=== PATIENT | male | born 1960 | race Caucasian/White ===

== ENCOUNTER 2016-08-21 18:21 | Emergency (ER) | payer BC ==
[2016-08-21 18:33] VITALS: BP 125/65; PULSE 85; TEMP 98.4; BMI 21.7
[2016-08-21] MEDS ORDERED: DEXAMETHASONE SOD PHOSPHATE 10 MG/1 ML VIAL IM ONE (19:20)
--- NOTE | 2016-08-21 19:27 | PDOC ---
History of Present Illness - General Chief Complaint: Sore Throat Stated Complaint: SORE THROAT Time Seen by Provider: 08/21/16 18:59 History Source: Patient Exam Limitations: No Limitations - History of Present Illness Initial Comments: 08/21/16 19:28 feeling no better post 2 days of amoxicilln ffor throat infection Associated Symptoms: reports: denies symptoms Past History - Past Medical History Allergies/Adverse Reactions: Allergies Allergy/AdvReac Type Severity Reaction Status Date / Time No Known Allergies Allergy Verified 08/21/16 18:33 - Psycho/Social/Smoking Cessation Hx Suicidal Ideation: No Smoking History: Never smoked Information on smoking cessation initiated: No Review of Systems - Review of Systems Constitutional: Yes: Chills, Malaise. No: Fever HEENTM: Yes: Throat Pain, Throat Swelling, Difficulty Swallowing Respiratory: No: Cough Cardiac (ROS): No: Symptoms Reported ABD/GI: Yes: Symptoms Reported *Physical Exam - Vital Signs Last Vital Signs Temp Pulse Resp BP Pulse Ox 98.4 F 85 18 125/65 100 08/21/16 18:30 08/21/16 18:30 08/21/16 18:30 08/21/16 18:30 08/21/16 18:30 - Physical Exam General Appearance: Yes: Appropriately Dressed, Apparent Distress HEENT: positive: TMs Normal, Other (left tonsil swollen, no COLOR BLENDER noted) Neck: positive: Supple, Lymphadenopathy (L). negative: Tender, Rigid Respiratory/Chest: positive: Lungs Clear. negative: Respiratory Distress, Accessory Muscle Use Cardiovascular: positive: Regular Rhythm, Regular Rate Medical Decision Making - Medical Decision Making 08/21/16 19:30 will increase [id number] x TID and have pt follow up with ENT in am *DC/Admit/Observation/Transfer Diagnosis at time of Disposition: Acute bacterial tonsillitis - Discharge Dispostion Disposition: HOME Admit: Yes - Referrals Referrals: Trip Porras MD [Staff Physician] - - Patient Instructions Additional Instructions: please see Dr Porras tomorrow or sunday; if symptoms not better; take amox 3 times daily x 10 days - Post Discharge Activity Work/School Note: Back to Work
[2016-08-21] MEDS ORDERED: DEXAMETHASONE SOD PHOSPHATE 10 MG/1 ML VIAL ONE (19:33)
== END 2016-08-21 19:45 | disposition home or self-care (01) ==
LOC: JERFT 18:21
PROC: 3E0233Z Introduction of Anti-inflammatory into Muscle, Percutaneous Approach (ICD-10-PCS; principal; 2016-08-21)
DX: J03.80 Acute tonsillitis due to other specified organisms (principal); B96.89 Other specified bacterial agents as the cause of diseases classified elsewhere
CPT/HCPCS: 99281-25

== ENCOUNTER 2016-08-23 00:34 | Emergency (ER) | payer BC ==
[2016-08-23 00:59] VITALS: BP 139/71; PULSE 105; TEMP 99.7; BMI 21.7
[2016-08-23] MEDS ORDERED: DEXAMETHASONE SOD PHOSPHATE 10 MG/1 ML VIAL IVPUSH ONE (01:09)
--- NOTE | 2016-08-23 01:09 | PDOC ---
History of Present Illness - History of Present Illness Initial Comments: 08/23/16 01:27 Patient is a 56 year old male with no significant medical hx who is presenting to the ED for worsening throat infection after four days of antibiotics. Patient came to the ED on 08/916 for worsening throat infection after being on antibiotics for two days. He was sent home with increased amoxicillin 500mg x TID and advised to follow-up with ENT. The patient has a follow up appointment with ENT coming up at 11:00 am today. The patient came to the ED tonight because his symptoms are not getting better and he is unable to tolerate swallowing food. He is able to tolerate small sips of liquids. The patient is also complaining of low grade fever with chills. <Gabbi Sheridan - Last Filed: 08/23/16 01:27> <Monik Chatterjee - Last Filed: 08/27/16 16:44> - General Chief Complaint: Edema Stated Complaint: SORE THROAT, DIFFICULTY BREATHING Time Seen by Provider: 08/23/16 00:52 Past History <Gabbi Sheridan - Last Filed: 08/23/16 01:27> - Psycho/Social/Smoking Cessation Hx Suicidal Ideation: No Smoking History: Never smoked <Monik Chatterjee - Last Filed: 08/27/16 16:44> - Past Medical History Allergies/Adverse Reactions: Allergies Allergy/AdvReac Type Severity Reaction Status Date / Time No Known Allergies Allergy Verified 08/21/16 18:33 Home Medications: Ambulatory Orders Amoxicillin - [Amoxicillin 500mg Capsule -] 500 mg PO TID #21 capsule 08/21/16 Review of Systems - Review of Systems Comments:: 08/23/16 01:28 CONSTITUTIONAL: Present: low grade fever, chills Absent: diaphoresis, generalized weakness, malaise, loss of appetite HEENT: Present: throat pain, throat swelling, difficulty swallowing Absent: rhinorrhea, nasal congestion, mouth swelling, ear pain, eye pain, visual changes CARDIOVASCULAR: Absent: chest pain, syncope, palpitations, irregular heart rate, lightheadedness , peripheral edema RESPIRATORY: Absent: cough, shortness of breath, dyspnea with exertion, orthopnea, wheezing, stridor, hemoptysis GASTROINTESTINAL: Absent: abdominal pain, abdominal distension, nausea, vomiting, diarrhea, constipation, melena, hematochezia GENITOURINARY: Absent: dysuria, frequency, urgency, hesitancy, hematuria, flank pain, genital pain MUSCULOSKELETAL: Absent: myalgia, arthralgia, joint swelling SKIN: Absent: rash, itching, pallor HEMATOLOGIC/IMMUNOLOGIC: Absent: easy bleeding, easy bruising, lymphadenopathy, frequent infections ENDOCRINE: Absent: unexplained weight gain, unexplained weight loss, heat intolerance, cold intolerance NEUROLOGIC: Absent: headache, focal weakness or paresthesia, dizziness, unsteady gait, seizure, mental status changes, bladder or bowel incontinence. PSYCHIATRIC: Absent: anxiety, depression, suicidal or homicidal ideation, hallucinations <Gabbi Sheridan - Last Filed: 08/23/16 01:27> *Physical Exam - Vital Signs Last Vital Signs Temp Pulse Resp BP Pulse Ox 99.7 F H 105 H 18 139/71 97 08/23/16 00:44 08/23/16 00:44 08/23/16 00:44 08/23/16 00:44 08/23/16 00:44 - Physical Exam Comments: 08/23/16 01:29 GENERAL: Well developed, well nourished. Awake and alert. No acute distress. HEENT: Normocephalic, atraumatic. PERRLA, EOMI. No conjunctival pallor. Sclera are non- icteric. Dry mucous membranes. Hot potato voice, throat swelling, left tonsillar pillar swelling and entire palette swelling. Deviation of uvula. NECK: Supple. Full ROM. No JVD. Carotid pulses 2+ and symmetric, without bruits. No thyromegaly. No lymphadenopathy. CARDIOVASCULAR: Regular rate and rhythm. No murmurs, rubs, or gallops. Distal pulses are 2+ and symmetric. PULMONARY: No evidence of respiratory distress. Lungs clear to auscultation bilaterally. No wheezing, rales or rhonchi. ABDOMINAL: Soft. Non-tender. Non-distended. No rebound or guarding. No organomegaly. Normoactive bowel sounds. MUSCULOSKELETAL: Normal range of motion at all joints. No bony deformities or tenderness. No CVA tenderness. EXTREMITIES: No cyanosis. No clubbing. No edema. No calf tenderness. SKIN: Warm and dry. Normal capillary refill. No rashes. No jaundice. NEUROLOGICAL: Alert, awake, appropriate. Cranial nerves 2-12 intact. Normal speech. Gait is normal without ataxia. PSYCHIATRIC: Cooperative. Good eye contact. Appropriate mood and affect. <Gabbi Sheridan - Last Filed: 08/23/16 01:27> - Vital Signs Last Vital Signs Temp Pulse Resp BP Pulse Ox 99.7 F H 105 H 18 139/71 97 08/23/16 00:44 08/23/16 00:44 08/23/16 00:44 08/23/16 00:44 08/23/16 00:44 <Monik Chatterjee - Last Filed: 08/27/16 16:44> ED Treatment Course - Medications Given in the ED: ED Medications Discontinued Medications Generic Name Dose Route Start Last Admin Trade Name Freq PRN Reason Stop Dose Admin Dexamethasone Sodium Phosphate 20 mg 08/23/16 01:09 08/23/16 01:11 Decadron Injection - IVPUSH 08/23/16 01:10 20 mg ONCE ONE Administration <Gabbi Sheridan - Last Filed: 08/23/16 01:27> - LABORATORY CBC & Chemistry Diagram: 08/23/16 01:25 08/23/16 01:25 <Monik Chatterjee - Last Filed: 08/27/16 16:44> *DC/Admit/Observation/Transfer - Attestations Scribe Attestion: 08/23/16 01:31 Documentation prepared by Gabbi Sheridan, acting as medical practice manager for Monik Chatterjee MD. <Gabbi Sheridan - Last Filed: 08/23/16 01:27> <Monik Chatterjee - Last Filed: 08/27/16 16:44> Diagnosis at time of Disposition: Acute bacterial tonsillitis - Discharge Dispostion Disposition: HOME Condition at time of disposition: Good - Referrals Referrals: Mariano Wilks MD [Primary Care Provider] - Trip Porras MD [Staff Physician] - - Patient Instructions Printed Discharge Instructions: DI for Pharyngitis/Tonsillopharyngitis -- Adult Print Language: [place] ISLAND[place]
[2016-08-23] MEDS ORDERED: SODIUM CHLORIDE 1,000 ML IV STA (01:10)
[2016-08-23] MEDS ORDERED: DEXAMETHASONE SOD PHOSPHATE 10 MG/1 ML VIAL ONE (01:14)
[2016-08-23] MEDS: ACETAMINOPHEN 1000 MG/100 ML VIAL (NON FORMULARY) IVPB ONE ×2 (01:27→01:33)
[2016-08-23] MEDS ORDERED: KETOROLAC TROMETHAMINE 30 MG/1 ML VIAL ONE (01:29)
[2016-08-23] MEDS ORDERED: KETOROLAC TROMETHAMINE 30 MG/1 ML VIAL IVPUSH ONE (01:34)
[2016-08-23 01:37] LABS: BASOPHIL 0.3 % (0-2.0); EOSINOPHIL 0.1 % (0-4.5); MCH 29.9 pg (25.7-33.7); MCHC 32.7 g/dl (32.0-35.9); MEAN CELL VOLUME 91.7 fl (80-96); MEAN PLT VOLUME 7.6 fl (7.5-11.1); NEUTROPHILS 75.2 % (42.8-82.8); PLATELET COUNT 363 K/MM3 (134-434); RDW 13.1 % (11.9-15.9); WHITE BLOOD COUNT 15.8 K/mm3 (4.0-10.0)
[2016-08-23 02:04] LABS: ALBUMIN 3.9 g/dl (3.4-5.0); ALK PHOS 82 U/L (45-117); ANION GAP 10 (8-16); BILIRUBIN,TOTAL 0.9 mg/dL (0.2-1.0); CALCIUM 8.9 mg/dL (8.5-10.1); CO2 30 mmol/L (21-32); GLUCOSE,RANDOM 111 mg/dL (74-106); SGOT/AST 29 U/L (15-37); SGPT/ALT 62 U/L (12-78); TOT PROT 7.6 g/dl (6.4-8.2)
--- NOTE | 2016-08-23 03:42 | PDOC ---
*Physical Exam - Vital Signs Last Vital Signs Temp Pulse Resp BP Pulse Ox 99.7 F H 105 H 18 139/71 97 08/23/16 00:44 08/23/16 00:44 08/23/16 00:44 08/23/16 00:44 08/23/16 00:44 ED Treatment Course - LABORATORY CBC & Chemistry Diagram: 08/23/16 01:25 08/23/16 01:25 - ADDITIONAL ORDERS Additional order review: Laboratory Results 08/23/16 01:25 Sodium 142 Potassium 3.9 Chloride 102 Carbon Dioxide 30 Anion Gap 10 BUN 11 Creatinine 1.0 Creat Clearance w eGFR > 60 Random Glucose 111 H Calcium 8.9 Total Bilirubin 0.9 AST 29 ALT 62 Alkaline Phosphatase 82 Total Protein 7.6 Albumin 3.9 08/23/16 01:25 RBC 5.16 MCV 91.7 MCHC 32.7 RDW 13.1 MPV 7.6 Neutrophils % 75.2 Lymphocytes % 13.7 Monocytes % 10.7 H Eosinophils % 0.1 Basophils % 0.3 - Medications Given in the ED: ED Medications Discontinued Medications Generic Name Dose Route Start Last Admin Trade Name Jayme PRN Reason Stop Dose Admin Acetaminophen 1,000 mg 08/23/16 01:23 08/23/16 01:33 Ofirmev Injection - IVPB 08/23/16 01:24 Not Given ONCE ONE Dexamethasone Sodium Phosphate 20 mg 08/23/16 01:09 08/23/16 01:11 Decadron Injection - IVPUSH 08/23/16 01:10 20 mg ONCE ONE Administration Sodium Chloride 1,000 mls @ 1,000 mls/hr 08/23/16 01:10 08/23/16 01:11 Normal Saline - IV 08/23/16 02:09 1,000 mls/hr ASDIR STA Administration Ketorolac Tromethamine 30 mg 08/23/16 01:34 08/23/16 01:35 Toradol Injection - IVPUSH 08/23/16 01:35 30 mg NOW ONE Administration *DC/Admit/Observation/Transfer Diagnosis at time of Disposition: Acute bacterial tonsillitis - Discharge Dispostion Disposition: HOME Condition at time of disposition: Stable Admit: No - Referrals Referrals: Mariano Wilks MD [Primary Care Provider] - Trip Porras MD [Staff Physician] - - Patient Instructions Printed Discharge Instructions: DI for Pharyngitis/Tonsillopharyngitis -- Adult Print Language: MAORI - Post Discharge Activity
== END 2016-08-23 03:44 | disposition home or self-care (01) ==
LOC: JER 00:34
PROC: 3E033NZ Introduction of Analgesics, Hypnotics, Sedatives into Peripheral Vein, Percutaneous Approach (ICD-10-PCS; principal; 2016-08-23)
PROC: 3E0333Z Introduction of Anti-inflammatory into Peripheral Vein, Percutaneous Approach (ICD-10-PCS; 2016-08-23)
DX: J03.80 Acute tonsillitis due to other specified organisms (principal); B96.89 Other specified bacterial agents as the cause of diseases classified elsewhere
CPT/HCPCS: 36415; 70490-TC; 80053; 85025; 99282-25

== ENCOUNTER 2018-12-13 11:27 | Emergency (ER) | payer BC ==
[2018-12-13 11:36] VITALS: BMI 27.4
--- NOTE | 2018-12-13 12:08 | PDOC ---
History of Present Illness - General Chief Complaint: Chest Pain Stated Complaint: CHEST PAIN History Source: Patient Exam Limitations: No Limitations - History of Present Illness Initial Comments: 12/13/18 12:25 58 yo M with no past medical history presents to the emergency department with chest prickling sensation that began yesterday and worsened today. Per the patient, it abruptly onset last night while laying down. He denies it being painful but endorses it feeling like a prickling sensation lasting 15 minutes at a time without radiation. While at work lifting boxes approximating 30 lbs today at 8am, he experienced the same prickling sensation that lasted 30 minutes with a feeling of heaviness radiating to his left arm that terminated on his own. He denies the following: fever, chills, SOB, nausea, vomiting, diaphoresis, neck and back pain, and dysuria. Per the patient, he was evaluated by his oil expert 15 years ago for a murmur and his echo was normal; denies a hx of stress test. He endorses lifting heavier objects recently. Shx: None Allergies: NKDA Social: Denies tobacco, alcohol, and substance abuse. Meds: None Past History - Past Medical History Allergies/Adverse Reactions: Allergies Allergy/AdvReac Type Severity Reaction Status Date / Time No Known Allergies Allergy Verified 12/13/18 11:36 Home Medications: Ambulatory Orders NK [No Known Home Medication] 12/13/18 COPD: No Hypercholesterolemia: Yes - Suicide/Smoking/Psychosocial Hx Smoking History: Never smoked Have you smoked in the past 12 months: No Information on smoking cessation initiated: No Hx Alcohol Use: No Drug/Substance Use Hx: No Review of Systems - Review of Systems Able to Perform ROS?: Yes Is the patient limited Ivorian proficient: No Constitutional: No: Chills, Diaphoresis, Fever HEENTM: No: Blurred Vision, Recent change in vision, Ear Pain, Nose Pain, Throat Pain, Mouth Pain Respiratory: No: Cough, Shortness of Breath, Hemoptysis Cardiac (ROS): Yes: Chest Pain. No: Lightheadedness, Palpitations, Syncope, Chest Tightness ABD/GI: No: Constipated, Diarrhea, Nausea, Poor Appetite, Poor Fluid Intake, Rectal Bleeding, Vomiting, Tarry Stools : No: Burning, Dysuria, Hematuria, Incontinence Musculoskeletal: No: Back Pain, Joint Pain, Neck Pain Integumentary: No: Bruising, Erythema, Rash Neurological: No: Headache, Numbness, Tingling, Tremors, Dizziness Psychiatric: No: Change in Appetite Endocrine: No: Unexplained Weight Gain Hematologic/Lymphatic: No: Anemia *Physical Exam - Vital Signs Last Vital Signs Temp Pulse Resp BP Pulse Ox 98.0 F 84 18 134/69 100 12/13/18 11:28 12/13/18 11:28 12/13/18 11:28 12/13/18 11:12/13/18 11:28 - Physical Exam General Appearance: Yes: Nourished, Appropriately Dressed. No: Apparent Distress, Intoxicated HEENT: positive: EOMI, POLO, Normal Voice, Symmetrical, Pharynx Normal. negative: Pale Conjunctivae, Scleral Icterus (R), Scleral Icterus (L), Muffled/ Hoarse voice Neck: positive: Supple. negative: Tender, Lymphadenopathy (R), Lymphadenopathy (L), Tender lateral, Tender midline Respiratory/Chest: positive: Lungs Clear, Normal Breath Sounds. negative: Chest Tender, Respiratory Distress, Accessory Muscle Use Cardiovascular: positive: Regular Rhythm, Regular Rate, S1, S2. negative: Systolic Murmur Gastrointestinal/Abdominal: positive: Normal Bowel Sounds, Flat, Soft. negative : Tender, Distended, Guarding, Rebound Lymphatic: negative: Adenopathy Musculoskeletal: positive: Normal Inspection. negative: CVA Tenderness, Vertebral Tenderness Extremity: positive: Normal Capillary Refill, Normal Inspection, Normal Range of Motion. negative: Tender, Swelling, Calf Tenderness Integumentary: positive: Normal Color, Dry, Warm. negative: Swelling, Ecchymosis Neurologic: positive: patient care assistant II-XII NML intact, Fully Oriented, Alert, Normal Mood/ Affect, Normal Response, Motor Strength 5/5. negative: EOM Palsy, Facial Droop , Sensory Deficit ED Treatment Course - LABORATORY CBC & Chemistry Diagram: 12/13/18 12:38 12/13/18 12:38 Medical Decision Making - Medical Decision Making 58 yo M with no past medical history presents to the emergency department with chest prickling sensation that began yesterday and worsened today. Initial vitals: Initial Vital Signs Temp Pulse Resp BP Pulse Ox 98.0 F 84 18 134/69 100 12/13/18 11:28 12/13/18 11:28 12/13/18 11:28 12/13/18 11:28 12/13/18 11:28 Work up: ddx: ACS rule out. pNA vs pleuritis vs pericarditis vs costochondritis. EKG shows NSR with ventricular rate of 78 bpm with normal limits of the following: [place], QRS, and QTc. No ST elevations or depressions noted. Laboratory Tests 12/13/18 12/13/18 12:38 12:38 WBC 5.8 RBC 4.82 Hgb 14.8 Hct 44.3 MCV 91.9 MCH 30.6 MCHC 33.3 RDW 13.3 Plt Count 236 D MPV 7.8 Absolute Neuts (auto) 3.7 Neutrophils % 63.5 Lymphocytes % 27.0 D Monocytes % 8.4 Eosinophils % 0.6 D Basophils % 0.5 Nucleated RBC % 0 Sodium 139 Potassium 4.5 Chloride 108 H Carbon Dioxide 27 Anion Gap 5 L BUN 14 Creatinine 0.9 Creat Clearance w eGFR 86.98 Random Glucose 79 Calcium 9.0 Total Bilirubin 0.4 AST 22 ALT 31 Alkaline Phosphatase 65 Creatine Kinase 75 Troponin I < 0.02 Total Protein 7.4 Albumin 4.0 troponin was negative and EKG not concerning for STEMI. However, c-spine CT shows multi-level degenerative disc disease with mild posterior spur formation unconvertebral hypertrophy without gross cord impingement. The patient has been pain free in the emergency department. he was given a referral to neurosurgery and stated that they will follow up with them. discharged with stable vitals and able to ambulate on their own volition. Dispo: Discharge *DC/Admit/Observation/Transfer Diagnosis at time of Disposition: Chest pain Qualifiers: Chest pain type: unspecified Qualified Code(s): R07.9 - Chest pain, unspecified - Discharge Dispostion Disposition: HOME Decision to Admit order: No - Referrals Referrals: Mariano Wilks MD [Primary Care Provider] - Rubén Cervantes MD, FAANS [Staff Physician] - - Patient Instructions Printed Discharge Instructions: DI for Atypical Chest Pain Additional Instructions: You were seen in the emergency department for your chest pain and prickling sensation along your left arm. your ct spine shows disc degenerative disease and should be followed up with the neurosurgery to be evaluated for possibly remedy. your cardiac enzymes are within normal limits. please return to the emergency department if you have worsening symptoms or new concerning symptoms such as imbalance, loss of feeling and motor function in the left arm, and worsening chest pain. - Post Discharge Activity Forms/Work/School Notes: Back to Work
[2018-12-13 12:57] LABS: BASO % 0.5 % (0-2.0); EOS % 0.6 % (0-4.5); HEMATOCRIT 44.3 % (35.4-49); HEMOGLOBIN 14.8 GM/dL (11.7-16.9); MCH 30.6 pg (25.7-33.7); MCHC 33.3 g/dl (32.0-35.9); MEAN CELL VOLUME 91.9 fl (80-96); MEAN PLT VOLUME 7.8 fl (7.5-11.1); MONO % 8.4 % (3.8-10.2); NEUT % 63.5 % (42.8-82.8); PLATELET COUNT 236 K/MM3 (134-434); RBC 4.82 M/mm3 (4.00-5.60); RDW 13.3 % (11.9-15.9); WHITE BLOOD COUNT 5.8 K/mm3 (4.0-10.0)
[2018-12-13 13:23] LABS: ALK PHOS 65 U/L (45-117); ANION GAP 5 MMOL/L (8-16); BILIRUBIN,TOTAL 0.4 mg/dL (0.2-1); BLOOD UREA NITROGEN 14 mg/dL (7-18); CHLORIDE 108 mmol/L (98-107); CO2 27 mmol/L (21-32); CREATININE 0.9 mg/dL (0.55-1.3); GLUCOSE,RANDOM 79 mg/dL (74-106); POTASSIUM 4.5 mmol/L (3.5-5.1); SGOT/AST 22 U/L (15-37); SGPT/ALT 31 U/L (13-61); SODIUM 139 mmol/L (136-145); TOT PROT 7.4 g/dl (6.4-8.2)
--- NOTE | 2018-12-13 14:36 | PDOC ---
Documentation entered by Monique Bunch SCRIBE, acting as scribe for Dedra Kuo MD. Dedra Kuo MD: This documentation has been prepared by the Julio C crabtree Nirvannie, SCRIBE, under my direction and personally reviewed by me in its entirety. I confirm that the documentation accurately reflects all work, treatment, procedures, and medical decision making performed by me. Attending Attestation - Resident Resident Name: Caleb Barney - ED Attending Attestation I have performed the following: I have examined & evaluated the patient, The case was reviewed & discussed with the resident, I agree w/resident's findings & plan - HPI HPI: 12/13/18 13:57 The patient is a 58 year old male, with no significant past medical history, who presents to the emergency department with, 2 days of intermittent chest discomfort described as a pinching sensation. Patient endorses 3 isolated episodes of chest discomfort yesterday and today endorses 2 episodes with new onset of LUE and LLE cramping, prompting his arrival to the ED today. He denies any SOB, diaphoresis, or palpitation. Allergies: NKSA Primary Care Physician: Dr. Wilks ([facility]) - Physicial Exam PE: 12/13/18 14:18 GENERAL: The patient is in no acute distress. ENT: Ears normal, nares patent, oropharynx clear without exudates. Moist mucous membranes. NECK: Normal range of motion, supple LUNGS: Breath sounds equal, clear to auscultation bilaterally. No wheezes, and no crackles. HEART:Regular rate and rhythm, normal S1 and S2 without murmur, rub or gallop. ABDOMEN: Soft, nontender, normoactive bowel sounds. EXTREMITIES: Normal range of motion, no edema. NEUROLOGICAL: Cranial nerves II through XII grossly intact. Normal speech. No focal neurological deficits. SKIN: Warm, Dry, normal turgor, no rashes or lesions noted. - Medical Decision Making 12/13/18 14:19 Twelve-lead EKG was performed and reviewed by me. There is normal sinus rhythm with a normal rate of 78 bpm. The axis is normal. The intervals are normal. There are no ST or T wave abnormalities. Impression: Normal twelve-lead EKG 58 yo M presenting with a complaint of chest pain that began last evening intermittent episodes (A total of 5) No fevers, chills, cough, recent travel No chest wall trauma No shortness of breath Pt did also have left sided cramping DD: cardiac ischemia, pe (unlikely low risk wells, PERC negative), pneumonia, pneumothorax, pleural effusion, costochondritis, pericarditis, GERD. Will do: labs Will do CT Re assess 12/13/18 14:35 Laboratory Tests 12/13/18 12/13/18 12:38 12:38 WBC 5.8 Hgb 14.8 Hct 44.3 Plt Count 236 D BUN 14 Creatinine 0.9 Creatine Kinase 75 Troponin I < 0.02 CT head Will plan to discharge 12/13/18 15:56 CT neck - degenerative changes Will discharge to home
[2018-12-13 16:10] VITALS: BP 134/78; PULSE 70; TEMP 98.4
--- NOTE | 2018-12-14 08:28 | EKG ---
Test Reason : Blood Pressure : / mmHG Vent. Rate : 080 BPM Atrial Rate : 080 BPM P-R Int : 170 ms QRS Dur : 092 ms QT Int : 354 ms P-R-T Axes : 037 040 047 degrees QTc Int : 408 ms NORMAL SINUS RHYTHM NORMAL ECG NO PREVIOUS ECGS AVAILABLE Confirmed by JON MARIE, PAOLA ([id number]) on 12/14/2018 8:28:22 AM Referred By: Confirmed By:PAOLA WEBB MD
--- NOTE | 2018-12-15 09:20 | EKG ---
Test Reason : Blood Pressure : / mmHG Vent. Rate : 078 BPM Atrial Rate : 078 BPM P-R Int : 172 ms QRS Dur : 084 ms QT Int : 360 ms P-R-T Axes : 039 040 046 degrees QTc Int : 410 ms NORMAL SINUS RHYTHM NORMAL ECG WHEN COMPARED WITH ECG OF 13-DEC-2018 11:23, NO SIGNIFICANT CHANGE WAS FOUND Confirmed by PAOLA WEBB MD ([id number]) on 12/15/2018 9:19:49 AM Referred By: Confirmed By:PAOLA WEBB MD
== END 2018-12-13 16:00 | disposition home or self-care (01) ==
LOC: JER 11:27
DX: R07.9 Chest pain, unspecified (principal); E78.00 Pure hypercholesterolemia, unspecified
CPT/HCPCS: 36415; 70450-TC; 71046-TC-FY; 72125-TC; 80053; 82550; 84484; 85025; 93005; 93010; 99284-25